=== PATIENT | female | born 1975 | race American Indian/Alaskan Native ===

== ENCOUNTER 2016-11-18 10:24 | Outpatient (CLI) | payer OTHER ==
--- NOTE | 2016-11-20 10:40 | Magnetic Resonance Report ---
BILATERAL BREAST MRI WITH AND WITHOUT CONTRAST. HISTORY: BRCA1 variant. PROCEDURE: The study was performed using a [place] breast coil on a 1.5 Gill GE magnet. Precontrast axial T1 and T2-weighted images were followed by postcontrast high-resolution multiphase VIBRANT program. Postprocessing was performed on an [employer] work station. FINDINGS: RIGHT BREAST: An intramammary lymph node with typical fatty hilum is identified in the upper-outer quadrant of the right breast. No mass lesions are identified. No abnormal enhancement is seen. Sparse background enhancement. LEFT BREAST: No evidence of mass lesion or abnormal parenchymal enhancement. IMPRESSION: No MRI evidence of malignancy. BI-RADS CATEGORY: 2 = Benign ACR BI-RADS MAMMOGRAPHIC CODES: 0 = Needs additional imaging evaluation; 1 = Negative; 2 = Benign; 3 = Probably benign; 4 = Suspicious; 5 = Malignant; 6 = Known biopsy-proven malignancy COMMENT: 1. Dense breast tissue, i.e., adenosis, fibrocystic changes, etc., may obscure an underlying neoplasm. 2. Approximately 10% of cancers are not detected with mammography. 3. A negative mammography report should not delay biopsy if a clinically suspicious mass is present. RECOMMENDATION: Continued mammographic yearly screening. COMMENT: Patient follow-up letters are generated by [employer].
== END 2016-11-18 10:25 | disposition home or self-care (01) ==
LOC: SPVIMAG 10:24
PROVIDERS: ATTEND Surgery
DX: R47.01 Aphasia (principal)
CPT/HCPCS: 0159T; A9577; C8908; 77059

== ENCOUNTER 2019-09-29 10:00 | Outpatient (CLI) | payer OTHER ==
--- NOTE | 2019-09-29 11:04 | Mammography Report ---
DIGITAL RIGHT DIAGNOSTIC MAMMOGRAM WITH CAD, 09/29/2019 INDICATION: ABNORMAL MAMMOGRAM. Recalled for asymmetries. TECHNIQUE: Digital mammographic imaging was performed. Magnification views were obtained. This examination was interpreted with the benefit of Computer-aided Detection analysis. COMPARISON: 08/24/2019 Breast Density: The breasts are heterogeneously dense, which may obscure small masses. FINDINGS: Right lateral, exaggerated CC and spot magnification MLO views were performed and are negat moses. Satisfactory effacement of asymmetries. IMPRESSION: No mammographic evidence of malignancy. Follow up recommendation: Routine BI-RADS Category 1: Negative. A "normal" or negative report should not discourage follow up or biopsy of a clinically significant f inding. A written summary of these findings will be mailed to the patient. The patient will be entered into a mammography reporting system which will generate a reminder letter for the patient's next appointmen t at the appropriate interval. According to the [employer], yearly mammograms are recommended starting at age 40 and continuing as long as a woman is in good health. Breast MRI is recommended for women with an chance roximately 20-25% or greater lifetime risk of breast cancer, including women with a strong family his tory of breast or ovarian cancer and women who have been treated for Hodgkin's disease. Signer Name: Derrell De Jesus MD Signed: 09/29/2019 10:59 AM Workstation Name: [id number]
== END 2019-09-29 10:01 | disposition home or self-care (01) ==
LOC: SPVWC 10:00
PROVIDERS: ATTEND Surgery
DX: R92.8 Other abnormal and inconclusive findings on diagnostic imaging of breast (principal)

== ENCOUNTER 2019-11-03 10:47 | Emergency (ER) | payer OTHER ==
[2019-11-03] MEDS ORDERED: methylPREDNISolone Sod Succinate 125 MG/2 ML INJ IM ONE (11:12)
--- NOTE | 2019-11-03 11:12 | Emergency Department Report ---
- General Chief Complaint: Upper Respiratory Infection Stated Complaint: CHEST RATTLE/FLU SYM Time Seen by Provider: 11/03/19 10:59 Source: patient Mode of arrival: Ambulatory Limitations: No Limitations - History of Present Illness Initial Comments: 44-year-old female with a past medical history of hypertension presents to the ER today complaining of a one-week history of cough. She describes the cough as a productive cough with associated wheezing, shortness of breath and chest congestion. She also reports associated generalized body aches, sore throat from the coughing and diaphoresis. Patient states that when her symptoms first started she did have fever for about 3 days but this has since resolved. She denies any history of smoking. She denies any history of lung or heart disease. She has not been on any antibiotics recently. No recent apparent ill contacts. She has been taking Mucinex without much relief. She reports no other symptoms at this time. MD Complaint: cough -: week(s) (1) - Related Data Previous Rx's Medication Instructions Recorded Last Taken Type Albuterol INH(or & Nicu Only) 2 puff IH QID PRN #8.5 gram 11/03/19 Unknown Rx [ProAir HFA Inhaler] guaiFENesin/CODEINE [Robitussin AC] 5 ml PO Q6H PRN #120 ml 11/03/19 Unknown Rx predniSONE [Deltasone] 60 mg PO QDAY #12 tab 11/03/19 Unknown Rx Allergies Allergy/AdvReac Type Severity Reaction Status Date / Time No Known Allergies Allergy Unverified 11/03/19 10:50 ED Review of Systems ROS: Stated complaint: CHEST RATTLE/FLU SYM Other details as noted in HPI Constitutional: diaphoresis, fever (when her symptoms first started but this has since resolved) ENT: throat pain (secondary to coughing) Respiratory: cough, shortness of breath, wheezing. denies: SOB with exertion, SOB at rest, stridor Cardiovascular: denies: chest pain Gastrointestinal: denies: abdominal pain, nausea, vomiting, diarrhea Musculoskeletal: denies: back pain, arthralgia, myalgia Neurological: denies: headache, weakness ED Past Medical Hx - Past Medical History Previous Medical History?: Yes Hx Hypertension: Yes - Surgical History Past Surgical History?: Yes Additional Surgical History: hysterectomy - Social History Smoking Status: Never Smoker Substance Use Type: Alcohol, Marijuana - Medications Home Medications: Home Medications Medication Instructions Recorded Confirmed Last Taken Type Albuterol INH(or & Nicu Only) 2 puff IH QID PRN #8.5 gram 11/03/19 Unknown Rx [ProAir HFA Inhaler] guaiFENesin/CODEINE [Robitussin AC] 5 ml PO Q6H PRN #120 ml 11/03/19 Unknown Rx predniSONE [Deltasone] 60 mg PO QDAY #12 tab 11/03/19 Unknown Rx ED Physical Exam - General Limitations: No Limitations General appearance: alert, in no apparent distress - Head Head exam: Present: atraumatic, normocephalic - Eye Eye exam: Present: normal appearance, PERRL, EOMI Pupils: Present: normal accommodation - ENT ENT exam: Present: normal exam, normal orophraynx, mucous membranes moist - Neck Neck exam: Present: normal inspection, full ROM. Absent: meningismus - Respiratory Respiratory exam: Present: wheezes (diffuse). Absent: respiratory distress, accessory muscle use, decreased breath sounds, prolonged expiratory - Cardiovascular Cardiovascular Exam: Present: regular rate, normal rhythm, normal heart sounds - GI/Abdominal GI/Abdominal exam: Present: soft. Absent: tenderness - Neurological Exam Neurological exam: Present: alert, oriented X3, CN II-XII intact, normal gait - Skin Skin exam: Present: intact ED Course Vital Signs 11/03/19 11/03/19 10:50 11:40 Temperature 98.7 F Pulse Rate 87 Pulse Rate [ 89 Anterior Bilateral Throughout] Respiratory 16 Rate Respiratory 18 Rate [Anterior Bilateral Throughout] Blood Pressure 172/96 O2 Sat by Pulse 97 Oximetry ED Medical Decision Making - Radiology Data Radiology results: report reviewed Ordering Physician: CHAD PEPE Date of Service: 11/03/19 Procedure(s): XR chest routine 2V Accession Number(s): [id number] cc: CHAD PPEE Fluoro Time In Minutes: CHEST 2 VIEWS INDICATION: cough/wheezing. COMPARISON: None. FINDINGS: Support devices: None. Heart: Within normal limits. Lungs/Pleura: No acute air space or interstitial disease. No significant pleural effusion. IMPRESSION: No acute findings. Signer Name: Pankaj Pierce MD Signed: 11/03/2019 11:57 AM Workstation Name: [id number] Transcribed By: SILVANO Dictated By: Pankaj Pierce MD Electronically Authenticated By: Pankaj Pierce MD Signed Date/Time: 11/03/191156 DD/ 56 TD/TT: - Medical Decision Making 25-week patient presents to the ER today complaining of URI symptoms/cough and substernal chest pain mainly when she coughs. She has no related complaints. The patient is resting comfortably, she is alert and in no acute distress. She has normal mental status and she is neurologically intact. She appears well, and there is no signs of significant dehydration. There is no signs of respiratory distress and no signs of systemic toxicity. Patient's history, exam, and current condition does not did not demonstrate any significant infectious process such as severe meningitis, severe pneumonia, retropharyngeal abscess, epiglottitis, sepsis, or serious bacterial infection nor any concerns for pulmonary embolus or any other process requiring further testing, treatment, consultation or admission at this time. Her vital signs are stable. Her condition is stable and she is appropriate for discharge. Discussed suspected diagnosis and treatment plan with patient. Instructed her to f/u with PCP/OB if worse return to ED. Critical care attestation.: If time is entered above; I have spent that time in minutes in the direct care of this critically ill patient, excluding procedure time. ED Disposition Clinical Impression: Bronchitis Disposition: DC-01 TO HOME OR SELFCARE Is pt being admited?: No Does the pt Need Aspirin: No Condition: Stable Instructions: Acute Bronchitis (ED) Additional Instructions: Take medications as prescribed. Recommend lots of fluids. Recommend rest. R ecommend Tylenol and/or ibuprofen for any fever. Recommend close follow-up with primary care doctor. If anything changes or worsens return to the ER. Prescriptions: predniSONE [Deltasone] 60 mg PO QDAY #12 tab Albuterol INH(or & Nicu Only) [ProAir HFA Inhaler] 2 puff IH QID PRN #8.5 gram PRN Reason: Shortness Of Breath guaiFENesin/CODEINE [Robitussin AC] 5 ml PO Q6H PRN #120 ml PRN Reason: Cough Referrals: DEVIKA RAYO DO [Primary Care Provider] - 3-5 Days Forms: Work/School Release Form(ED) Time of Disposition: 12:56
[2019-11-03] MEDS ORDERED: ACETAMINOPHEN 325 MG TAB PO ONE (11:13)
[2019-11-03] MEDS ORDERED: IPRATROPIUM/ALBUTEROL SULFATE 3 ML AMPUL.NEB IH ONE (11:13)
--- NOTE | 2019-11-03 12:01 | XRay Report ---
CHEST 2 VIEWS INDICATION: cough/wheezing. COMPARISON: None. FINDINGS: Support devices: None. Heart: Within normal limits. Lungs/Pleura: No acute air space or interstitial disease. No significant pleural effusion. IMPRESSION: No acute findings. Signer Name: Pankaj Pierce MD Signed: 11/03/2019 11:57 AM Workstation Name: [id number]
[2019-11-03 13:12] VITALS: BP 168/84
== END 2019-11-03 13:05 | disposition home or self-care (01) ==
LOC: ED 10:47
DX: J40 Bronchitis, not specified as acute or chronic (principal); F12.10 Cannabis abuse, uncomplicated; I10 Essential (primary) hypertension; Z90.710 Acquired absence of both cervix and uterus; Z79.899 Other long term (current) drug therapy
CPT/HCPCS: 71046; 94640; 96372; 99283; J2930; 94644